=== PATIENT | female | born 1980 | race Caucasian/White ===

== ENCOUNTER 2018-12-27 18:07 | Emergency (ER) | payer MEDICAID ==
[~2018-12-27] VITALS: Ht 157.5 cm; Wt 51.6 kg
[2018-12-27 18:30] VITALS: BP 123/84
[2018-12-27] MEDS ORDERED: MUPI22OI30 TOP (18:54)
== END 2018-12-27 19:12 | disposition home or self-care (01) ==
LOC: ER 18:08
DX: S60.512A Abrasion of left hand, initial encounter (principal); S60.511A Abrasion of right hand, initial encounter; L98.9 Disorder of the skin and subcutaneous tissue, unspecified; F10.99 Alcohol use, unspecified with unspecified alcohol-induced disorder; Z79.899 Other long term (current) drug therapy; X58.XXXA Exposure to other specified factors, initial encounter; Y93.89 Activity, other specified; Y92.89 Other specified places as the place of occurrence of the external cause; Y99.8 Other external cause status; Y90.9 Presence of alcohol in blood, level not specified
CPT/HCPCS: 99283